=== PATIENT | male | born 1980 | race African-American/Black ===

== ENCOUNTER 2019-02-06 13:22 | Outpatient (CLI) | payer BC ==
--- NOTE | 2019-02-06 15:10 | MRI ---
MR OF THE RIGHT UPPER EXTREMITY WITH AND WITHOUT IV CONTRAST: 02/06/19 INDICATION: History of right scapular mass with increased hypermetabolic activity seen on recent PET scan. Concer n for possible sarcomatous lesion. CONTRAST: 20 mL of Multihance. COMPARISON: PET CT dated 01/10/19. FINDINGS: Corresponding to the fat density mass lesion situated within the right serratus anterior muscle seen on the prior PET scan is a 5.7 x 1.6 x 2 cm fat signal intensity mass lesion. The lesion demonstrates slightly less pronounced fat density on the comparison PET CT and does have some internal Isointense T1, slightly hyperintense T2 septations that demonstrate enhancement on the postcontrast images whic h may reflect small branching vessels. No surrounding muscular edema is present. No definite soft tis grecia nodule is noted. No pathologically enlarged lymph node is noted. Incidental note is made of an in tra-articular body within the bicipital tendon sheath measuring 6 mm on image 29 of series 4. There i s mild degenerative arthrosis involving the right glenohumeral joint with a few shotty appearing lymp h nodes seen within the right axillary region measuring up to 9 mm. IMPRESSION: 1. Well-circumscribed right serratus anterior fat signal intensity mass lesion with some mildly enhancing septations seen possibly related to internal branching vessels or small thin walled septati ons or interdigitation related to the lesion being intramuscular. Differential considerations in ligh t of the fact that there is prominent uptake on the PET scan includes an intramuscular hibernoma, aty pical lipomatous tumor, liposarcoma is not entirely excluded based on the imaging findings. CT guided percutaneous biopsy is recommended for further characterization. 2. 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 POS: TPC
[2019-02-06] MEDS ORDERED: Gadobenate Dimeglumine 529 MG/1 ML (20ML VIAL) ONE (16:50)
== END 2019-02-06 13:23 | disposition home or self-care (01) ==
LOC: TBSIIMAG 13:22
PROVIDERS: ATTEND Internal Medicine Hematology & Oncology
DX: R22.2 Localized swelling, mass and lump, trunk (principal); C84.00 Mycosis fungoides, unspecified site; R93.7 Abnormal findings on diagnostic imaging of other parts of musculoskeletal system; M19.011 Primary osteoarthritis, right shoulder
CPT/HCPCS: A9577

== ENCOUNTER 2019-02-18 16:32 | Outpatient (CLI) | payer BC ==
[2019-02-18 17:45] LABS: Hemoglobin 14.4 g/dL (14.0-18.0); Mean Corpuscular HGB CONC 33.5 g/dL (32.0-36.0); Mean Corpuscular Hemoglobin 30.6 pg (27.0-31.0); Mean Corpuscular Volume 91.1 fL (78.0-98.0); Platelet Count 224 thou/uL (130-400); RBC Distribution Width 11.8 % (11.5-14.5); Red Blood Cell (RBC) Count 4.71 mill/uL (4.70-6.10); White Blood Cell (WBC) Count 7.5 thou/uL (4.8-10.8)
[2019-02-18 18:03] LABS: Anion Gap 14 mmol/L (10-20); BUN (Urea Nitrogen) 13 mg/dL (8.9-20.6); Calc. Creatinine Clearance 0 mL/min (70-130); Calcium 9.4 mg/dL (7.8-10.44); Carbon Dioxide 26 mmol/L (22-29); Chloride 104 mmol/L (98-107); Estimated GFR-MDRD Greater than 90; Glucose 92 mg/dL (70-105); Potassium 4.2 mmol/L (3.5-5.1); Sodium 140 mmol/L (136-145)
== END 2019-02-18 16:33 | disposition home or self-care (01) ==
LOC: LABBT 16:32
PROVIDERS: ATTEND Thoracic Surgery (Cardiothoracic Vascular Surgery)
DX: Z01.812 Encounter for preprocedural laboratory examination (principal); R22.2 Localized swelling, mass and lump, trunk
CPT/HCPCS: 80048; 85027

== ENCOUNTER 2019-02-19 08:55 | Day surgery (SDC) | payer BC ==
[2019-02-18 16:44] VITALS: BMI 35.9
[2019-02-19] MEDS ORDERED: Bupivacaine HCl 0.5%/Epinephrine 1:200,000/PF 30 ml Vial ONE (10:22)
[2019-02-19] MEDS ORDERED: Midazolam HCl 2 mg/2 ml Vial ONE (10:34)
[2019-02-19] MEDS ORDERED: Fentanyl 100 MCG/2 ML VIAL ONE ×2 (10:36→12:35)
--- NOTE | 2019-02-19 12:59 | OP ---
DATE OF PROCEDURE: 02/19/2019 PREOPERATIVE DIAGNOSIS: Right subscapular PET-positive mass. POSTOPERATIVE DIAGNOSIS: Right subscapular PET-positive mass. PROCEDURE PERFORMED: Excision of subscapular chest wall mass. ANESTHESIA: General endotracheal-Dr. Edil Nichols. ESTIMATED BLOOD LOSS: Minimal. DRAINS: None. SPECIMENS: Subscapular chest wall mass. DESCRIPTION OF PROCEDURE: After consent was obtained, the patient was brought to the operating room, placed supine position on the operating table. Appropriate central line and monitors were placed and general endotracheal anesthesia was induced. The patient was placed in the left lateral decubitus position. Joints were appropriately padded and SCDs were used. Right chest wall was prepped and draped in usual sterile fashion. A subscapular curvilinear incision was made. Dissection through the latissimus was obtained with electrocautery. Serratus fascia was incised and the subscapular space developed. The mass was palpable approximately 6 cm superior to the scapular tip. With some difficulty, the scapular tip was retracted and the subscapular mass exposed and subsequently excised. It was approximately 2 cm x 4 cm. This was sent for routine pathologic examination. There was no other palpable mass in the subscapular space. Wound was irrigated, closed in layers and Dermabond applied to the skin. The patient was awakened, extubated, transferred to the recovery room in stable condition. Job ID: [id number]
[2019-02-19] MEDS ORDERED: HYDROcodone/Acetaminophen 5/325 mg Tablet ONE (14:07)
[2019-02-19] MEDS ORDERED: Lidocaine 1% PF 5 ML VIAL ONE (16:16)
[2019-02-19] MEDS ORDERED: Ketorolac Tromethamine 30 MG/ML VIAL ONE (16:16)
[2019-02-19] MEDS ORDERED: Ondansetron PF 4 MG/2 ML Vial ONE (16:16)
[2019-02-19] MEDS ORDERED: PROPOFOL 200 MG/20 ML VIAL ONE (16:16)
[2019-02-19] MEDS ORDERED: Glycopyrrolate 0.2 MG/ML 5 ML SYRINGE ONE (16:16)
[2019-02-19] MEDS ORDERED: Rocuronium Bromide 10 MG/ML (10ML VIAL) ONE (16:16)
--- NOTE | 2019-02-22 05:43 | PQF ---
[facility] POST DISCHARGE CLINICAL DOCUMENTATION IMPROVEMENT CLARIFICATION FORM l Todays Date: 02/22/19 l Patients Name ALEX SHARP l l Admit Date 02/19/19 l Disch Date 02/19/19 Contract Design Agent Name Santi Leung Email: [email or web address]: [phone] To be completed by Contract Design Agent: Present Clinical Indicators - Signs / Symptoms Results and Location in Medical Record [ ] Documentation of: [ ] [ ] Documentation of: [ ] [ ] Documentation of: [ ] [ ] Documentation of: [ ] [ ] Risks [ ] [ ] [ ] Treatment [ ] Hibernoma subscapsular right Query for size of margins of excised subscapular mass [ ] [ ] Mass was excised. To be completed by Physician: AXEL WASHINGTON The documentation in this patients record requires clarification to ensure coding compliance and accuracy. Check the appropriate box and include in your discharge summary. [ ] [ ] [ ] [ ] Please check this box if this does not apply to this patient [ ] Unable to determine [ ] Other diagnosis: Review the following information and exercise your independent professional judgment in responding to the clarification. Based upon the clinical findings, risk factors, and treatment, please clarify if you are treating one of the above probable or suspected diagnoses. Physician Signature: Date Time MTDD
== END 2019-02-19 14:10 | disposition home or self-care (01) ==
LOC: SDC 08:55
PROVIDERS: ATTEND Thoracic Surgery (Cardiothoracic Vascular Surgery)
DX: D17.79 Benign lipomatous neoplasm of other sites (principal); Z87.891 Personal history of nicotine dependence; Z79.899 Other long term (current) drug therapy; Z91.011 Allergy to milk products
CPT/HCPCS: 88307; 88331; J0670; J0690; J1885; J2001; J2250; J2405; J2704; J3010